=== PATIENT | female | born 1995 | race Caucasian/White ===

== ENCOUNTER 2017-07-04 08:05 | Day surgery (SDC) | payer BC ==
[~2017-07-04] VITALS: Ht 162.6 cm; Wt 68.9 kg
[~2017-07-04 08:05] MED LIST: NO MEDS
[2017-07-04 08:36] VITALS: Ht 162.6 cm; Wt 68.9 kg
--- NOTE | 2017-07-04 09:11 | OPPN ---
Date/Time of Note Date/Time of Note DATE: 07/04/17 TIME: 09:09 Proc Note GI Procedure Date 07/04/17 Indication: screening/surveillance Pre-procedure Diagnosis Screening for colon cancer Post-procedure Diagnosis 2 polyps in the ascending colon. 1.4 cm polyp successfully removed by cold snare technique piecemeal polypectomy done polyp was flat. Goes on of the flat polyp in the same neighborhood successfully removed by jumbo biopsy forceps Moderate degree of diverticulosis both left and right side of the colon some of them [place] Large 2-1/2 cm polyp in the rectum seen on the retroversion successfully removed by hot snare technique and the base was endoclipped Procedure Performed: Colonoscopy Surgeon see signature line Computer System Technician none Anesthesia Type: MAC Tourniquet Time none EBL none Transfusion required none Biopsy 1: None Polyp 1: Ascending colon cold snare Polyp 2: Ascending colon jumbo biopsy Polyp 3: Rectum hot snare Grafts/Implants none Tubes/Drains none Complication(s) none Disposition: PACU Procedure Description See dictated report PAUL JAMES MD Jul 04, 2017 09:11
[2017-07-04] MEDS ORDERED: FENTAnyl 50 MCG/ML VIAL ONE (10:21)
[2017-07-04] MEDS ORDERED: MIDAZOLAM 1 MG/ML 2 ML INJ ONE ×4 (10:21→10:22)
--- NOTE | 2017-07-04 10:22 | OPPN ---
Date/Time of Note Date/Time of Note DATE: 07/04/17 TIME: 10:21 Proc Note GI Procedure Date 07/04/17 Indication: diagnostic Pre-procedure Diagnosis Severe constipation and rectal bleeding Post-procedure Diagnosis External hemorrhoid Tortuous colon Procedure Performed: Colonoscopy Surgeon see signature line Registered Medical Transcriptionist none Anesthesia Type: MAC Tourniquet Time none EBL none Transfusion required none Biopsy 1: None Grafts/Implants none Tubes/Drains none Complication(s) none Disposition: PACU Procedure Description See dictated report PAUL JAMES MD Jul 04, 2017 10:22
[2017-07-04] MEDS ORDERED: LIDOCAINE 100 MG SYRINGE ONE (10:38)
[2017-07-04] MEDS ORDERED: PROPOFOL 20 ML ONE (10:38)
[2017-07-04 10:45] VITALS: BP 110/67; PULSE 68; RESP 18
--- NOTE | 2017-07-04 11:06 | GILP ---
DATE OF PROCEDURE: PROCEDURE: Colonoscopy. INDICATION: A 22-year-old female undergoing this procedure for severe constipation. She was movin g bowels once in 4 to 5 days and this change in bowel habit has happened recently. She also complai ns of intermittent rectal bleeding. The risk of the procedure, related and unrelated complications, both sedated and anesthetic risks we re explained and informed consent was obtained. DESCRIPTION OF PROCEDURE: Patient was brought to the GI lab, sedated with Versed 7 mg, fentanyl 100 mg. Despite the sedation, the patient was having discomfort, so I had to request in the middle of the procedure Dr. Carroll, the anesthesiologist, to come and use propofol. After using propofol the whole procedure was completed. Scope was initially inserted into the rectum after digital examinat ion. Digital examination was normal. Patient had a tortuous colon. Managed to pass all the way up to the mid transverse colon and hepatic flexure. Beyond that, she was developing low discomf ort. So at this point decided to use Dr. Carroll help. Despite sedating the patient with 7 mg of Ve rsed and 100 mcg of fentanyl, she was still awake, so Dr. Carroll gave her propofol and after getting propofol we could manage to go beyond hepatic flexure into the cecum. Appendiceal orifice, IC hannah ve identified. While coming out, mucosa thoroughly inspected. The rest of the colon was normal. R etroversion done, no internal hemorrhoids identified on antegrade examination, external hemorrhoids were seem which are the cause of bleeding. IMPRESSION: 1. External hemorrhoid cause of bleeding. 2. Tortuous colon. 3. Negative all the way into cecum. 4. Clarity and cleanliness was good. PLAN: To have a Sitz bath. The patient should be on Metamucil or Citrucel. If that does not help, then I will have to start her on Linzess for constipation. Dictated By: PAUL COBOS/STEPHY Conf#: [id number] DID#: [id number] CC: PAUL JAMES MD; CHARU WEATHERS MD;*EndCC*
== END 2017-07-04 11:13 | disposition home or self-care (01) ==
LOC: GIL 08:05
PROVIDERS: ATTEND Internal Medicine Gastroenterology
DX: K59.00 Constipation, unspecified (principal); K64.4 Residual hemorrhoidal skin tags
CPT/HCPCS: 45378; 84703; J2001; J2250; J3010